=== PATIENT | male | born 1985 | race Caucasian/White ===

== ENCOUNTER 2019-03-28 05:10 | Emergency (ER) | payer BC ==
--- NOTE | 2019-03-28 08:23 | ULT ---
PRELIMINARY REPORT/[facility]/EMERGENCY AFTER HOURS PROCEDURE: PROCEDURE INFORMATION: Exam: US Abdomen Limited, Right Upper Quadrant Exam date and time: 03/28/2019 5:58 AM Age: 33 years old Clinical history: Other: Upper abd pain TECHNIQUE: Imaging protocol: Real-time ultrasound of the abdomen with image documentation. Examination was focus ed on the right upper quadrant. COMPARISON: No relevant prior studies available. FINDINGS: Liver: There is a diffuse increase in hepatic parenchymal echogenicity, consistent with fatty infiltr ation. No masses. Gallbladder: No gallstones. There is no gallbladder wall thickening. Trace pericholecystic fluid. Sonographic Devlin's sign is reportedly negative. Common bile duct: Normal. No stones. No dilation. Pancreas: not well seen. Right kidney: Normal. No mass. No hydronephrosis. IMPRESSION: There is a diffuse increase in hepatic parenchymal echogenicity, consistent with fatty infiltration. No gallstones, gallbladder wall thickening or sonographic Devlin's sign, however there is nonspecific trace pericholecystic fluid. Thank you for allowing us to participate in the care of your patient. Dictated and Authenticated by: Stephie Aleman MD 03/28/2019 6:36 AM Central Time ([place] & [place]) FINAL REPORT RIGHT UPPER QUADRANT ULTRASOUND: Date: 03/28/19 INDICATION: Abdominal pain. COMPARISON: Noncontrast CT of the abdomen and pelvis performed 03/28/19 at 0312 hours. FINDINGS: There is diffuse fatty infiltration. The pancreas is largely obscured by overlying bowel gas. The gal lbladder is mildly distended. Small amount of pericholecystic fluid is evident. Gallbladder wall is n ormal appearing. No sonographic Devlin's sign is reported. The right kidney measures 12.5 cm in lengt h. The common bile duct measures 3.9 mm. IMPRESSION: 1. Nonspecific mild pericholecystic fluid without evidence of gallstones, gallbladder wall thickenin g, or sonographic Devlin's sign. The small amount of gallbladder wall edema is nonspecific. If there remains clinical concern for acute acalculous cholecystitis, follow-up HIDA scan may be helpful. 2. Prominent fatty liver. This report is in agreement with the preliminary report by [facility]. POS: [facility]
== END 2019-03-28 07:55 | disposition home or self-care (01) ==
LOC: ERS 05:10
DX: K76.0 Fatty (change of) liver, not elsewhere classified (principal); I10 Essential (primary) hypertension; F41.9 Anxiety disorder, unspecified; F32.9 Major depressive disorder, single episode, unspecified; F17.210 Nicotine dependence, cigarettes, uncomplicated; Z79.899 Other long term (current) drug therapy
CPT/HCPCS: 76705

== ENCOUNTER 2021-10-24 08:32 | Outpatient (CLI) | payer BC | END 2021-10-24 08:33 | disposition home or self-care (01) | LOC: ULT 08:32 | PROVIDERS: ATTEND Family Medicine | DX: E80.6 Other disorders of bilirubin metabolism (principal); R79.89 Other specified abnormal findings of blood chemistry; K76.0 Fatty (change of) liver, not elsewhere classified; R16.0 Hepatomegaly, not elsewhere classified | CPT/HCPCS: 76705 ==